=== PATIENT | female | born 1970 | race Caucasian/White ===

== ENCOUNTER 2022-05-07 00:11 | Emergency (ER) | payer OTHER ==
[~2022-05-07] VITALS: Ht 160 cm; Wt 55.3 kg
[2022-05-07 00:14] VITALS: BP 165/85
--- NOTE | 2022-05-07 00:14 | NUR ---
[facility] ALS TO BED #4
--- NOTE | 2022-05-07 00:22 | NUR ---
Dr. Valdez examining patient.
--- NOTE | 2022-05-07 00:30 | NUR ---
Patient lying in bed, alert but confused, chest rise and fall symmetrical, no s/s of distress.
[2022-05-07 00:49] LABS: BASOPHILS % (AUTO) 0.5 % (0.0-2.0); EOSINOPHILS # (AUTO) 0.1 K/uL (0-0.4); EOSINOPHILS % (AUTO) 3.8 % (0.0-4.0); HEMATOCRIT 32.9 % (36-48); HEMOGLOBIN 10.8 g/dL (12.0-16.0); LYMPHOCYTES # (AUTO) 1.6 K/uL (2.5-16.5); LYMPHOCYTES % (AUTO) 49.9 % (20.5-51.1); MEAN CORPUSCULAR HEMOGLOBIN 29 pg (27-31); MEAN CORPUSCULAR HGB CONC 33 g/dL (33-37); MEAN CORPUSCULAR VOLUME 86.8 fL (80-94); MONOCYTES # (AUTO) 0.3 K/uL (0.8-1.0); MONOCYTES % (AUTO) 10.2 % (1.7-9.3); NEUTROPHILS # (AUTO) 1.1 K/uL (1.8-7.7); NEUTROPHILS % (AUTO) 35.6 % (42.2-75.2); PLATELET COUNT (AUTO) 241 K/uL (140-450); RED CELL DISTRIBUTION WIDTH 14.4 % (11.6-13.7); WHITE BLOOD COUNT (AUTO) 3.1 K/uL (4.8-10.8)
[2022-05-07 01:30] LABS: ALBUMIN 3.4 g/dL (3.4-5.0); ANION GAP 11.4 (8-16); ASPARTATE AMINOTRANSFERASE 45 U/L (15-37); CARBON DIOXIDE 31.5 mmol/L (21-32); CHLORIDE 100 mmol/L (98-107); CREATININE 0.6 mg/dL (0.6-1.3); GFR ARICAN-AMERICAN 136 mL/min (>90); GLUCOSE 154 mg/dL (74-106); POTASSIUM 3.9 mmol/L (3.5-5.1); SODIUM SERUM 139 mmol/L (136-145); TOTAL BILIRUBIN 0.2 mg/dL (0.0-1.0); UREA NITROGEN, BLOOD 19 mg/dL (7-18)
--- NOTE | 2022-05-07 02:00 | NUR ---
Patient lying in bed, alert but confused, chest rise and fall symmetrical, no c/o pain or s/s of distress.
[2022-05-07 02:18] LABS: APPEARANCE,URINE SL CLOUDY (CLEAR); BILIRUBIN,URINE NEGATIVE (NEGATIVE); BLOOD, URINE NEGATIVE (NEGATIVE); COLOR,URINE YELLOW (YELLOW); LEUKOCYTE ESTERASE ,URINE NEGATIVE (NEGATIVE); NITRITE, URINE POSITIVE (NEGATIVE); UGLUCOSE 1+ (NEGATIVE)
[2022-05-07 02:24] LABS: RBC,URINE 0-5 /HPF (0-5); WBC,URINE 0-5 /HPF (0-5); YEAST,URINE Many /HPF (None Seen)
[2022-05-07 02:27] LABS: BARBITURATE, URINE NEGATIVE ng/ml (NEG <=200); BENZODIAZEPINE, URINE NEGATIVE ng/mL (NEG <=200); CANNABINOID, URINE NEGATIVE ng/mL (NEG <=50); COCAINE, URINE NEGATIVE ng/mL (NEG <=300); OPIATE, URINE NEGATIVE ng/mL (NEG <=2000); PHENCYCLIDINE SCREEN,URINE NEGATIVE ng/mL (NEG <=25)
[2022-05-07] MEDS ORDERED: NACL 0.9% 1,000 ML IV ONE (02:40)
[2022-05-07] MEDS ORDERED: cefTRIAXone 1,000 MG VIAL ONE (03:03)
--- NOTE | 2022-05-07 04:10 | NUR ---
Patient lying in bed, alert but confused, chest rise and fall symmetrical, no c/o pain or s/s of distress. Addendum: 05/07/22 at 0551 by [id number] Patient lying in bed, A/Ox4, chest rise and fall symmetrical, no c/o pain or s/s of distress.
[2022-05-07] MEDS ORDERED: NITR100C7 PO (04:49)
[2022-05-07 05:03] VITALS: BP 128/74
--- NOTE | 2022-05-07 05:30 | NUR ---
[facility] arranged for patient, pickup ETA 0630 hrs. Patient verbalized understanding, no further questions.
--- NOTE | 2022-05-07 05:50 | NUR ---
Ashlee muse in [facility] - 05/07/22 at 0551 by [email or web address] Ludin peacock arranged for patient, pickup ETA 0630 hrs. Patient verbalized understanding, no further questions.
--- NOTE | 2022-05-07 05:52 | NUR ---
Patient lying in bed, A/Ox4, chest rise and fall symmetrical, no c/o pain or s/s of distress.
== END 2022-05-07 05:03 | disposition home or self-care (01) ==
LOC: MED 00:11
DX: E11.649 Type 2 diabetes mellitus with hypoglycemia without coma (principal); N39.0 Urinary tract infection, site not specified; I10 Essential (primary) hypertension; Z79.4 Long term (current) use of insulin; Z79.899 Other long term (current) drug therapy
CPT/HCPCS: 36415; 70450; 80053; 80305; 81001; 84484; 85025; 87086; 93005; 96365; 99285; J0696; J7030